=== PATIENT | female | born 1995 | race African-American/Black ===

== ENCOUNTER 2021-09-29 21:35 | Emergency (ER) | payer BC ==
[2021-09-29 22:09] VITALS: BP 109/75; PULSE 80; RESP 20; TEMP 97.2
[2021-09-29] MEDS ORDERED: DEXAMETHASONE SOD PHOSPHATE 10 MG/ML 1 ML VIAL IM STA (23:25)
[2021-09-29] MEDS ORDERED: IBUPROFEN 600 MG STARTER PACK 4 TAB BTL PO STA (23:26)
[2021-09-29] MEDS ORDERED: AMOXICILLIN 500 MG CAP PO ONE (23:30)
--- NOTE | 2021-09-29 23:32 | ED ---
General Adult HPI - General Chief complaint: ENT Stated complaint: Strep throat Time Seen by Provider: 09/29/21 23:17 Source: patient Mode of arrival: ambulatory Limitations: no limitations - History of Present Illness Initial comments: 26-year-old female patient presents to the emergency department today for evaluation of sore throat that started yesterday. Patient states she has painful swallowing. Feels like her throat is swollen. She denies any fever or chills. Denies any nasal congestion or drainage for denies any cough. States she has had strep in the past and this feels similar. Denies chance of . - Related Data Previous Rx's Medication Instructions Recorded Amoxicillin 500 mg PO Q12HR #20 cap 09/29/21 Ibuprofen [Motrin] 600 mg PO Q8HR PRN #30 tab 09/29/21 Allergies Allergy/AdvReac Type Severity Reaction Status Date / Time No Known Allergies Allergy Verified 09/29/21 22:06 Review of Systems ROS Statement: Those systems with pertinent positive or pertinent negative responses have been documented in the HPI. ROS Other: All systems not noted in ROS Statement are negative. Past Medical History Past Medical History: No Reported History History of Any Multi-Drug Resistant Organisms: None Reported Past Surgical History: No Surgical Hx Reported Past Psychological History: No Psychological Hx Reported Smoking Status: Former smoker Past Alcohol Use History: None Reported Past Drug Use History: None Reported General Exam Limitations: no limitations General appearance: alert, in no apparent distress, other (This is a well- developed, well-nourished adult female in no acute distress.) ENT exam: Present: mucous membranes moist. Absent: normal oropharynx (Pharyngeal erythema, bilateral tonsillar hypertrophy. No tonsillar exudate. Tonsils are symmetric and uvula is midline.) Neck exam: Present: normal inspection. Absent: tenderness, meningismus, lymphad enopathy Respiratory exam: Present: normal lung sounds bilaterally. Absent: respiratory distress, wheezes, rales, rhonchi, stridor Cardiovascular Exam: Present: regular rate, normal rhythm, normal heart sounds. Absent: systolic murmur, diastolic murmur, rubs, gallop, clicks GI/Abdominal exam: Present: soft, normal bowel sounds. Absent: distended, tenderness, guarding, rebound, rigid Neurological exam: Present: alert, oriented X3, CN II-XII intact Psychiatric exam: Present: normal affect, normal mood Skin exam: Present: warm, dry, intact, normal color. Absent: rash Course Vital Signs 09/29/21 22:06 Temperature 97.2 F L Pulse Rate 80 Respiratory 20 Rate Blood Pressure 109/75 O2 Sat by Pulse 100 Oximetry Medical Decision Making - Medical Decision Making 26-year-old female patient presents to the emergency department today for evaluation of sore throat. Physical examination did reveal bilateral tonsillar hypertrophy and erythema. No exudate, tonsils are symmetric, uvula midline. She is afebrile. She is given dose of Decadron. She did test positive for strep. She'll be discharged with prescription for amoxicillin. She states instructed to follow up with her primary care physician for recheck in 1-2 days. Return parameters were discussed in detail. She verbalizes understanding and agrees with this plan. My attending is Dr. Kumar. - Lab Data Lab Results 09/29/21 09/29/21 Range/Units 22:10 22:10 Coronavirus (PCR) Not Detected (Not Detectd) Group A Strep Rapid Positive A (Negative) Disposition Clinical Impression: Strep throat Disposition: HOME SELF-CARE Condition: Good Instructions (If sedation given, give patient instructions): Strep Throat (ED) Additional Instructions: Take medications as directed. Follow-up the primary care physician for recheck in 1-2 days. Return for any new, worsening, or concerning symptoms. Prescriptions: Amoxicillin 500 mg PO Q12HR #20 cap Ibuprofen [Motrin] 600 mg PO Q8HR PRN #30 tab PRN Reason: Pain Is patient prescribed a controlled substance at d/c from ED?: No Referrals: Nonstaff,Physician [REFERRING] - 1-2 days Time of Disposition: 23:26
== END 2021-09-30 00:17 | disposition home or self-care (01) ==
LOC: EC 21:35
DX: J02.9 Acute pharyngitis, unspecified (principal); Z20.822 Contact with and (suspected) exposure to COVID-19; Z87.891 Personal history of nicotine dependence
CPT/HCPCS: 87430; 87635; 99282; 96372; J1100